=== PATIENT | female | born 1965 | race Hispanic/Latino ===

== ENCOUNTER 2016-11-24 15:12 | Emergency (ER) | payer BC, OTHER ==
[~2016-11-24] VITALS: Ht 175.3 cm; Wt 79.5 kg
[2016-11-24] MEDS ORDERED: IBP200T PO (15:40)
[2016-11-24] MEDS ORDERED: PROMETHAZINE 25 MG/ML (PHENERGAN) 1 ML VIAL IM ONE (16:00)
[2016-11-24] MEDS ORDERED: HYDROmorphone 1 MG/ML (DILAUDID) SYRINGE IV ONE (16:00)
[2016-11-24] MEDS ORDERED: DEXAMETHASONE 10 MG/ML (DECADRON) VIAL IM ONE (16:55)
[2016-11-24] MEDS ORDERED: HYDROmorphone 1 MG/ML (DILAUDID) SYRINGE IM ONE (16:55)
[2016-11-24] MEDS ORDERED: ED- oxyCODONE/ACETAMINOPHEN 5MG-325MG (PERCOCET) 8 TABLETS/BTL PO ONE (17:50)
[2016-11-24] MEDS ORDERED: OXYC1TAB6 PO (17:54)
[2016-11-24] MEDS ORDERED: PRM25T PO (17:54)
[2016-11-24] MEDS ORDERED: METH4TAB27 PO (17:56)
[2016-11-24 18:31] VITALS: BP 107/64
== END 2016-11-24 18:37 | disposition home or self-care (01) ==
LOC: ED 15:23
DX: G89.21 Chronic pain due to trauma (principal); M79.601 Pain in right arm; M54.89 Other dorsalgia; M54.2 Cervicalgia; M79.604 Pain in right leg; R20.8 Other disturbances of skin sensation; R26.2 Difficulty in walking, not elsewhere classified; Y99.0 Civilian activity done for income or pay
CPT/HCPCS: 96372; 96374; 99284; J1100; J1170; J2550; 99283